=== PATIENT | female | born 1970 | race Caucasian/White ===

== ENCOUNTER 2022-05-03 19:55 | Emergency (ER) | payer SELFPAY ==
[~2022-05-03] VITALS: Ht 165.1 cm; Wt 71.7 kg
[2022-05-03] MEDS ORDERED: FLUT16SP16 NS (20:54)
[2022-05-03 21:00] VITALS: BP_SYST 126
--- NOTE | 2022-05-03 21:00 | NUR ---
Pt placed to ER waiting room in stable condition.
--- NOTE | 2022-05-03 21:00 | NUR ---
Pt states that while she was cleaning a lamp at work, dirty water fell into her right ear, then she began to have right ear pain.
--- NOTE | 2022-05-03 21:05 | NUR ---
Dr. Navarrete assessing pt in triage.
[2022-05-03 21:24] VITALS: BP_SYST 126
--- NOTE | 2022-05-03 21:24 | NUR ---
Patient given written and verbal discharge instructions and verbalizes understanding. ER MD discussed with patient the results and treatment provided. Patient in stable condition. ID arm band removed. Rx of flonase given. Patient educated on pain management and to follow up with PMD. Pain Scale 3/10. Opportunity for questions provided and answered. Medication side effect fact sheet provided.
== END 2022-05-03 21:24 | disposition home or self-care (01) ==
LOC: SED 19:55
DX: H69.91 Unspecified Eustachian tube disorder, right ear (principal); Z88.6 Allergy status to analgesic agent; E11.9 Type 2 diabetes mellitus without complications; Z79.899 Other long term (current) drug therapy
CPT/HCPCS: 99283